=== PATIENT | female | born 1995 ===

== ENCOUNTER 2016-10-11 14:24 | Emergency (ER) | payer OTHER ==
[2016-10-11 14:55] VITALS: TEMP 98.3
[2016-10-11 16:04] LABS: BASO # 0.01 K/mm3 (0.0-2.0); BASO % 0.1 % (0.0-3.0); EOS # 0.2 (0.0-0.7); EOS % 1.5 % (1.5-5.0); GRAN # 8.23 (1.4-6.5); GRAN % 80.3 % (50.0-68.0); HEMOGLOBIN 13.5 g/dL (12.0-16.0); LYMPH # 1.4 (1.2-3.4); LYMPH % 13.6 % (22.0-35.0); MEAN CELL VOLUME 85.1 fl (80.0-105.0); MEAN CORPUSCULAR HEMOGLOBIN 29.5 pg (25.0-35.0); MEAN CORPUSCULAR HGB CONC 34.7 g/dl (31.0-37.0); MEAN PLATELET VOLUME 9.2 fl (7.0-11.0); MONO # 0.5 (0.1-0.6); MONO % 4.5 % (1.0-6.0); PLATELET COUNT 252 10^3/uL (120.0-450.0); RBC 4.57 10^6/uL (3.5-6.1); RED CELL DISTRIBUTION WIDTH 13.3 % (11.5-14.5); WHITE BLOOD COUNT 10.2 10^3/ul (4.5-11.0)
[2016-10-11 16:05] LABS: PH,URINE 6.5 (4.7-8.0); URINE BILIRUBIN NEGATIVE (NEGATIVE); URINE BLOOD LARGE (NEGATIVE); URINE GLUCOSE (UA) NEGATIVE (NEGATIVE); URINE LEUKOCYTE ESTERASE TRACE Leu/uL (NEGATIVE); URINE NITRATE NEGATIVE (NEGATIVE); URINE PROTEIN TRACE mg/dL (<30 mg/dL)
[2016-10-11 16:06] LABS: URINE APPEARANCE TURBID (CLEAR); URINE COLOR YELLOW (YELLOW)
[2016-10-11 16:15] LABS: URINE RBC TNTC /hpf (0-2); URINE WBC 0 - 2 /hpf (0-6)
[2016-10-11 16:18] LABS: ALB/GLOB RATIO 1.4 (1.1-1.8); ALBUMIN 3.8 g/dL (3.0-4.8); ALT/SGPT 16 U/L (7-56); AST/SGOT 20 U/L (15-39); BLOOD UREA NITROGEN 5 mg/dL (7-21); CALCIUM 9.1 mg/dL (8.4-10.5); GFR AFRICAN-AMERICAN > 60; GFR NON-AFRICAN AMERICAN > 60
--- NOTE | 2016-10-11 17:05 | ED PDOC ---
Arrival/HPI - General Chief Complaint: Female Genitourinary Time Seen by Provider: 10/11/16 16:55 - History of Present Illness Narrative History of Present Illness (Text): 10/11/16 16:55 Sharmin Greenwood is a 21 year old female who presents to the emergency department complaining of vaginal bleeding as per [facility] medical office technician, assisting with translation. Patient states that her last normal menstrual period was September 16. Patient presents today after passing a large clot in the bathroom and vaginal bleeding. Patient denies any weakness, dizziness, or any other complaints. Severity Level: Mild Activities at Onset: Light Modifying Factors (Text): none Context: Home Past Medical History - Provider Review Nursing Documentation Reviewed: Yes - Infectious Disease Hx of Infectious Diseases: None - Reproductive Menopause: No - Psychiatric Hx Substance Use: No Family/Social History - Physician Review Nursing Documentation Reviewed: Yes Family/Social History: No Known Family HX Smoking Status: Current Some Days Smoker Hx Alcohol Use: No Hx Substance Use: No Allergies/Home Meds Allergies/Adverse Reactions: Allergies No Known Allergies Allergy (Verified 10/11/16 14:54) Home Medications: Home Meds Medication Instructions Recorded Confirmed No Known Home Med 10/11/16 10/11/16 Physical Exam - Physical Exam Narrative Physical Exam (Text): - Review of Systems Constitutional: Normal. absent: Fatigue, Weight Change, Fevers Eyes: Normal ENT: Normal Respiratory: Normal absent: SOB, Cough, Sputum Cardiovascular: Normal absent: Chest pain, Palpitations, Syncope Gastrointestinal: Normal absent: Abdominal pain, Diarrhea, Nausea, Vomiting Genitourinary: Vaginal Bleeding. absent: Dysuria, Frequency, Hematuria Musculoskeletal: Normal. absent: Arthralgias, Back Pain, Neck Pain Skin: Normal Neurological: Normal absent: Focal Weakness Endocrine: Normal Hemo/Lymphatic: Normal Psychiatric: Normal - Physical exam Patient appears age appropriate, speaking full sentences without difficulty - Systems Exam Head: Present: Atraumatic, Normocephalic Pupils: Present: PERRL Extraocular Muscles: Present: EOMI Conjunctiva: Present: Normal Mouth: Present: Moist Mucous Membranes Neck: Present: Normal Range of Motion. No: MIDLINE TENDERNESS, Paraspinal Tenderness Respiratory/Chest: Present: Clear to Auscultation, Good Air Exchange. No: Respiratory Distress, Accessory Muscle Use, Tachypnic Cardiovascular: Present: Regular Rate and Rhythm, Normal S1, S2, Peripheral Pulses Present. No: Murmurs Abdomen: Present: Normal Bowel Sounds, No: Tenderness, Peritoneal Signs, Rebound, Guarding, Distention Genitourinary: [facility] medical office technician present during exam. Normal appearing external genitalia. Some pooling in the vaginal vault. Cervix not visualized. No tenderness to R. and L. adnexa. Back: Present: Normal Inspection. No: Midline Tenderness, Paraspinal Tenderness Upper Extremity: Present: Normal Inspection. No: Cyanosis, Edema Lower Extremity: Present: Normal Inspection. No: Edema Neurological: Present: GCS=15, Speech Normal, cranial nerves II through XII fully intact with no cerebellar abnormality, neuro-sensory fully intact. No focal neurological deficits. Skin: Present: Warm, Dry, Normal Color. No: Rashes Lymphatic: Present: OX3, NI, NC Psychiatric: Present: Alert, Oriented x 3, Normal Insight, Normal Concentration Vital Signs Reviewed: Yes Vital Signs Temp Pulse Resp BP Pulse Ox 10/11/16 21:03 65 20 107/63 98 10/11/16 18:05 66 20 105/58 L 100 10/11/16 14:43 98.3 F 75 20 112/73 98 Temperature: Afebrile Blood Pressure: Normal Pulse: Regular Respiratory Rate: Normal Appearance: Positive for: Well-Appearing, Non-Toxic, Comfortable Pain Distress: None Mental Status: Positive for: Alert and Oriented X 3 Medical Decision Making ED Course and Treatment: 10/11/16 16:55 Impression: 21 year old female complaining of vaginal bleeding today. Abd soft/nt, and pt is hemodynamically stable Plan: -- OB Transvaginal Ultrasound -- Urine Culture -- Reassess and disposition Progress Notes: 10/11/16 18:15 OB Transvaginal Ultrasound: Creator : DR. Montero, Odilia Carpio MD Findings: The uterus measures approximately 13.4 x 6.9 x 8.3 cm. Anteverted. Cervix length measures approximately 2.7 cm. The endometrium appears heterogeneous and thick approximately 2.7 cm in diameter. No evidence of intrauterine gestational sac. The right ovary measures 3.3 x 1.9 x 2.7 cm. Doppler flow was not demonstrated to the right ovary. The left ovary measures 2.9 x 3.1 x 1.8 cm. Blood flow was demonstrated to the left ovary. Impression: Heterogeneous thickened endometrium measuring up to 2.7 cm in diameter. No evidence of intrauterine gestational sac. Blood flow was not demonstrated to the right ovary, possibly due to technical factors. Correlate clinically. Addendum by radiologist closed cervix 10/11/16 20:[address] Combs, [employer] insulation machine operator, in detail she states she reviewed pt's US as well states to dc pt home states to admin 4 tabs 200mcg each of cytotec transvaginally and to dc pt home with outpatient clinic f/u, and to return to the ER in 2 days for repeat beta and US pt hemodynamically stable , in distress 10/11/16 22:37 Neftali CANTU translating and present in the room during cytotec administration pt informed to fu with [employer] specialist office/clinic or in the ER within 48hrs for repeat labs and US pt verbalized understanding and agreement with plan no longer having vaginal bleeding hemodynamically stable Pt states she understands to return to the ER right away for new or worsening symptoms or for inability to f/u with PMD or specialist as instructed. Patient states that she fully agrees with and understands discharge instructions. States that she agrees with the plan and disposition. Verbalized and repeated discharge instructions and plan. I have given the patient opportunity to ask any additional questions. - Lab Interpretations Lab Results: 10/11/16 15:51 10/11/16 15:51 Lab Results 10/11/16 17:24: Blood Type Confirm O POSITIVE 10/11/16 15:53: Blood Type O POSITIVE, Antibody Screen Negative, BBK History Checked No verified bt 10/11/16 15:51: Beta HCG, Quant 5160.30 H 10/11/16 15:51: Sodium 134, Potassium 3.7, Chloride 103, Carbon Dioxide 20 L, Anion Gap 15, BUN 5 L, Creatinine 0.4 L, Est GFR ( Amer) > 60, Est GFR ( Non-Af Amer) > 60, Random Glucose 79, Calcium 9.1, Total Bilirubin 0.3, AST 20, ALT 16, Alkaline Phosphatase 73, Total Protein 6.6, Albumin 3.8, Globulin 2.8, Albumin/Globulin Ratio 1.4 10/11/16 15:51: Urine Color Yellow, Urine Appearance Turbid, Urine pH 6.5, Ur Specific [place] 1.010, Urine Protein Trace H, Urine Glucose (UA) Negative, Urine Ketones Negative, Urine Blood Large H, Urine Nitrate Negative, Urine Bilirubin Negative, Urine Urobilinogen 1.0 H, Ur Leukocyte Esterase Trace H, Urine RBC Tntc, Urine WBC 0 - 2, Ur Epithelial Cells 1 - 3 10/11/16 15:51: WBC 10.2, RBC 4.57, Hgb 13.5, Hct 38.9, MCV 85.1, MCH 29.5, MCHC 34.7, RDW 13.3, Plt Count 252, MPV 9.2, Gran % 80.3 H, Lymph % (Auto) 13.6 L, [place] % (Auto) 4.5, Eos % (Auto) 1.5, Baso % (Auto) 0.1, Gran # 8.23 H, Lymph # 1.4, [place] # 0.5, Eos # 0.2, Baso # 0.01 I have reviewed the lab results: Yes - RAD Interpretation Radiology Orders: 10/11/16 15:12 OB TRANSVAGINAL [US] Stat - Medication Orders Current Medication Orders: Discontinued Medications Misoprostol (Cytotec) 800 mcg VAG STAT STA Stop: 10/11/16 20:12 Last Admin: 10/11/16 21:01 Dose: 800 mcg - Scribe Statement The provider has reviewed the documentation as recorded by the Sharon Chan Provider Scribe Attestation: All medical record entries made by the Scribe were at my direction and personally dictated by me. I have reviewed the chart and agree that the record accurately reflects my personal performance of the history, physical exam, medical decision making, and the department course for this patient. I have also personally directed, reviewed, and agree with the discharge instructions and disposition. Disposition/Present on Arrival - Present on Arrival Any Indicators Present on Arrival: No History of DVT/PE: No History of Uncontrolled Diabetes: No Urinary Catheter: No History of Decub. Ulcer: No History Surgical Site Infection Following: None - Disposition Have Diagnosis and Disposition been Completed?: Yes Diagnosis: Miscarriage Disposition: HOME/ ROUTINE Disposition Time: 22:54 Patient Plan: Discharge Condition: GOOD Discharge Instructions (ExitCare): Spontaneous Miscarriage (ED) Additional Instructions: PLEASE FOLLOW UP IN THE ER OR IN SPECIALIST OFFICE IN 48HOURS FOR REPEAT ULTRASOUND AND LABS PLEASE RETURN TO THE EMERGENCY DEPARTMENT FOR NEW OR WORSENING SYMPTOMS. RETURN RIGHT AWAY IF YOU CANNOT FOLLOW UP WITH YOUR PRIMARY CARE DOCTOR, CLINIC, OR SPECIALIST IN 1-2 DAYS. Referrals: PCP,NO [Primary Care Provider] - [facility] - Follow up with primary Magali Combs MD [Staff Provider] - Follow up with primary Forms: [facility] (Kazakh), WORK NOTE
--- NOTE | 2016-10-11 17:08 | US ---
Indication: Miscarriage Comparison: None available Technique: Transvaginal pelvic ultrasound. Findings: The uterus measures approximately 13.4 x 6.9 x 8.3 cm. Anteverted. Cervix length measures approximately 2.7 cm. The endometrium appears heterogeneous and thick approximately 2.7 cm in diameter. No evidence of intrauterine gestational sac. The right ovary measures 3.3 x 1.9 x 2.7 cm. Doppler flow was not demonstrated to the right ovary. The left ovary measures 2.9 x 3.1 x 1.8 cm. Blood flow was demonstrated to the left ovary. Impression: Heterogeneous thickened endometrium measuring up to 2.7 cm in diameter. No evidence of intrauterine gestational sac. Blood flow was not demonstrated to the right ovary, possibly due to technical factors. Correlate clinically.
[2016-10-11 21:04] VITALS: O2SAT 98
[2016-10-12 01:02] VITALS: BP 111/63; PULSE 68; RESP 19
== END 2016-10-11 22:45 | disposition home or self-care (01) ==
LOC: ED 14:24
DX: O03.9 Complete or unspecified spontaneous abortion without complication (principal)

== ENCOUNTER 2016-10-15 11:56 | Emergency (ER) | payer OTHER ==
[2016-10-15 12:23] VITALS: TEMP 99.5
--- NOTE | 2016-10-15 13:07 | ED PDOC ---
Arrival/HPI - General Chief Complaint: Medical Clearance Time Seen by Provider: 10/15/16 12:17 Historian: Patient - History of Present Illness Narrative History of Present Illness (Text): 10/15/16 13:05 A 21 year old female, s/p miscarriage four days ago, presents to the emergency department for a check up. Nurse Addie served as statement distribution clerk. Patient reported to the emergency department four days ago, and was told to return if couldn't get an appointment with OBGYN within a few days. Notes vaginal bleeding for the past four days, currently resolved. Patient is unsure, but believes she was 3-4 months . Reports she has an appointment with OBGYN in ten days. Denies any fever, nausea, vomiting or any other complaints at this time. Symptom Onset: Sudden Symptom Course: Unchanged Activities at Onset: Rest Context: Home Associated Symptoms (Text): none Past Medical History - Provider Review Nursing Documentation Reviewed: Yes - Travel History If Yes, travel location?: Arrived from [place] 1 week ago - Infectious Disease Hx of Infectious Diseases: None - Psychiatric Hx Substance Use: No Family/Social History - Physician Review Nursing Documentation Reviewed: Yes Family/Social History: No Known Family HX Smoking Status: Current Some Days Smoker Hx Alcohol Use: No Hx Substance Use: No Allergies/Home Meds Allergies/Adverse Reactions: Allergies No Known Allergies Allergy (Verified 10/15/16 12:23) Home Medications: Home Meds Medication Instructions Recorded Confirmed No Known Home Med 10/11/16 10/15/16 Review of Systems - Physician Review All systems were reviewed & negative as marked: Yes - Review of Systems Constitutional: absent: Fevers Gastrointestinal: absent: Nausea, Vomiting Genitourinary Female: absent: Dysuria, Vaginal Bleeding (currently resolved) Physical Exam Vital Signs Reviewed: Yes Vital Signs Temp Pulse Resp BP Pulse Ox 10/15/16 15:44 57 L 18 113/64 99 10/15/16 15:04 64 18 133/75 100 10/15/16 14:42 65 17 135/80 100 10/15/16 13:05 70 17 132/78 100 10/15/16 12:23 99.5 F 75 16 133/74 99 Temperature: Afebrile Blood Pressure: Normal Pulse: Regular Respiratory Rate: Normal Appearance: Positive for: Well-Appearing, Non-Toxic, Comfortable Pain Distress: None Mental Status: Positive for: Alert and Oriented X 3 - Systems Exam Head: Present: Atraumatic, Normocephalic Pupils: Present: PERRL Extroacular Muscles: Present: EOMI Conjunctiva: Present: Normal Mouth: Present: Moist Mucous Membranes Neck: Present: Normal Range of Motion Respiratory/Chest: Present: Clear to Auscultation, Good Air Exchange. No: Respiratory Distress, Accessory Muscle Use Cardiovascular: Present: Regular Rate and Rhythm, Normal S1, S2. No: Murmurs Abdomen: Present: Normal Bowel Sounds. No: Tenderness, Distention, Peritoneal Signs Back: Present: Normal Inspection Upper Extremity: Present: Normal Inspection. No: Cyanosis, Edema Lower Extremity: Present: Normal Inspection. No: Edema Neurological: Present: GCS=15, CN II-XII Intact, Speech Normal Skin: Present: Warm, Dry, Normal Color. No: Rashes Psychiatric: Present: Alert, Oriented x 3, Normal Insight, Normal Concentration Medical Decision Making ED Course and Treatment: 10/15/16 15:07 Transvaginal US Creator : Nic Garza MD FINDINGS: UTERUS: Measures 10.6 x 6.9 x 9.1 cm. Normal in size and appearance. No fibroid or other mass lesion seen. ENDOMETRIUM: Measures 34 mm in diameter. Thick heterogeneous endometrium consistent with hemorrhage and recent miscarriage. No evidence of gestational sac CERVIX: No cervical abnormality identified. RIGHT OVARY: Measures 2.6 x 1.8 x 2.5 cm. No solid mass. Normal flow. LEFT OVARY: Measures 2.8 x 1.5 x 2.9 cm. No solid mass. Normal flow. FREE FLUID: No significant free fluid noted. IMPRESSION: Blood flow is now demonstrated in both ovaries. On the previous study the right ovary blood flow was not demonstrated. No change in the appearance of blood products within the endometrial canal. 10/15/16 15:23 Case discussed with OBGYN Dr. Goyal. - Lab Interpretations Lab Results: Lab Results 10/15/16 13:21: Beta HCG, Quant 111.08 H I have reviewed the lab results: Yes - RAD Interpretation Radiology Orders: 10/15/16 12:52 TRANSVAGINAL [US] Stat - Scribe Statement The provider has reviewed the documentation as recorded by the Sharon Ambrose Provider Scribe Attestation: All medical record entries made by the Scribe were at my direction and personally dictated by me. I have reviewed the chart and agree that the record accurately reflects my personal performance of the history, physical exam, medical decision making, and the department course for this patient. I have also personally directed, reviewed, and agree with the discharge instructions and disposition. Disposition/Present on Arrival - Present on Arrival Any Indicators Present on Arrival: No History of DVT/PE: No History of Uncontrolled Diabetes: No Urinary Catheter: No History of Decub. Ulcer: No History Surgical Site Infection Following: None - Disposition Have Diagnosis and Disposition been Completed?: Yes Diagnosis: Spontaneous Disposition: HOME/ ROUTINE Disposition Time: 15:23 Condition: GOOD Discharge Instructions (ExitCare): Spontaneous Miscarriage (ED) Print Language: ICELANDIC Additional Instructions: Please follow up with your OBGYN doctor. Take your test results to your appointment. Return to the ER for any new or worsening symptoms or for any other concerns. Referrals: PCP,NO [Primary Care Provider] - Follow up with primary Forms: [facility] (Cymro)
[2016-10-15 15:04] VITALS: RESP 18
--- NOTE | 2016-10-15 15:04 | US ---
HISTORY: spont follow up COMPARISON: Ultrasound 10/11/2016 TECHNIQUE: Transvaginal FINDINGS: UTERUS: Measures 10.6 x 6.9 x 9.1 cm. Normal in size and appearance. No fibroid or other mass lesion seen. ENDOMETRIUM: Measures 34 mm in diameter. Thick heterogeneous endometrium consistent with hemorrhage and recent miscarriage. No evidence of gestational sac CERVIX: No cervical abnormality identified. RIGHT OVARY: Measures 2.6 x 1.8 x 2.5 cm. No solid mass. Normal flow. LEFT OVARY: Measures 2.8 x 1.5 x 2.9 cm. No solid mass. Normal flow. FREE FLUID: No significant free fluid noted. OTHER FINDINGS: None. IMPRESSION: Blood flow is now demonstrated in both ovaries. On the previous study the right ovary blood flow was not demonstrated. No change in the appearance of blood products within the endometrial canal.
[2016-10-15 15:45] VITALS: BP 113/64; PULSE 57; O2SAT 99
== END 2016-10-15 15:45 | disposition home or self-care (01) ==
LOC: ED 11:56
DX: O03.9 Complete or unspecified spontaneous abortion without complication (principal)

== ENCOUNTER 2017-05-23 16:45 | Emergency (ER) | payer OTHER ==
[2017-05-23] MEDS ORDERED: Sodium Chloride 0.9% 1,000 ML IV STA (17:15)
--- NOTE | 2017-05-23 17:15 | ED PDOC ---
Arrival/HPI - General Chief Complaint: Female Genitourinary Time Seen by Provider: 05/23/17 17:05 Historian: Patient - History of Present Illness Narrative History of Present Illness (Text): 05/23/17 17:12 21yo female who present with complaint of suprapubic abdominal pain and vaginal bleeding since this afternoon. Patient report LMP on March 19 this year. States she didn't do a home test, but started bleeding today. She report episode of having blood clot this evening. she reports similar symptom in September when she was told she had a miscarriage. She denies fever, chills, nausea, vomiting, diarrhea, constipation, dysuria, back pain, any other complaint. Past Medical History - Provider Review Nursing Documentation Reviewed: Yes - Infectious Disease Hx of Infectious Diseases: None - Cardiac Hx Cardiac Disorders: No - Pulmonary Hx Respiratory Disorders: No - Neurological Hx Neurological Disorder: No - HEENT Hx HEENT Disorder: No - Renal Hx Renal Disorder: No - Endocrine/Metabolic Hx Endocrine Disorders: No - Hematological/Oncological Hx Blood Disorders: No - Integumentary Hx Dermatological Disorder: No - Musculoskeletal/Rheumatological Hx Musculoskeletal Disorders: No - Gastrointestinal Hx Gastrointestinal Disorders: No - Genitourinary/Gynecological Hx Genitourinary Disorders: No - Psychiatric Hx Psychophysiologic Disorder: No Hx Substance Use: No Family/Social History - Physician Review Nursing Documentation Reviewed: Yes Family/Social History: Unknown Family HX Smoking Status: Current Some Days Smoker Hx Alcohol Use: No Hx Substance Use: No Allergies/Home Meds Allergies/Adverse Reactions: Allergies No Known Allergies Allergy (Verified 05/23/17 16:59) Home Medications: Home Meds Medication Instructions Recorded Confirmed No Known Home Med 10/11/16 05/23/17 Review of Systems - Physician Review All systems were reviewed & negative as marked: Yes - Review of Systems Constitutional: Normal Eyes: Normal ENT: Normal Respiratory: Normal Cardiovascular: Normal Gastrointestinal: Abdominal Pain. absent: Constipation, Diarrhea, Nausea, Vomiting, Hematochezia, Hematemesis Genitourinary Female: Vaginal Bleeding. absent: Dysuria, Frequency Musculoskeletal: Normal Skin: Normal Neurological: Normal Endocrine: Normal Hemo/Lymphatic: Normal Psychiatric: Normal Physical Exam Vital Signs Reviewed: Yes Vital Signs Temp Pulse Resp BP Pulse Ox 05/23/17 21:14 98.4 F 69 18 126/74 99 05/23/17 19:31 66 18 120/57 L 100 05/23/17 17:00 99.0 F 77 18 111/71 99 Temperature: Afebrile Blood Pressure: Normal Pulse: Regular Respiratory Rate: Normal Appearance: Positive for: Well-Appearing, Non-Toxic, Comfortable Pain Distress: None Mental Status: Positive for: Alert and Oriented X 3 - Systems Exam Head: Present: Atraumatic, Normocephalic Pupils: Present: PERRL Extroacular Muscles: Present: EOMI Conjunctiva: Present: Normal Mouth: Present: Moist Mucous Membranes Neck: Present: Normal Range of Motion Respiratory/Chest: Present: Clear to Auscultation, Good Air Exchange. No: Respiratory Distress, Accessory Muscle Use Cardiovascular: Present: Regular Rate and Rhythm, Normal S1, S2. No: Murmurs Abdomen: Present: Tenderness (suprapubic tenderness), Normal Bowel Sounds, Other (soft). No: Distention, Peritoneal Signs, Rebound, Guarding, McBurney's Point Tender, Rovsing's Sign Present Genitourinary/Pelvic Exam: Present: Vaginal Bleeding (Blood pooling noted in vault), Cervical os Closed (Unable to visualize secondary to the blood in vault) Back: Present: Normal Inspection Upper Extremity: Present: Normal Inspection. No: Cyanosis, Edema Lower Extremity: Present: Normal Inspection. No: Edema Neurological: Present: GCS=15, CN II-XII Intact, Speech Normal Skin: Present: Warm, Dry, Normal Color. No: Rashes Psychiatric: Present: Alert, Oriented x 3, Normal Insight, Normal Concentration Medical Decision Making ED Course and Treatment: 05/24/17 01:16 PT in ED for sated history. she was not in any distress in ED. Hemodynamically sble. Hy[place] [address].00 was noted Transvaginal Us IMPRESSION: 1. There is thickening of the endometrium measuring 3.0 cm. There is abnormal echogenicity within the endometrial canal, consistent with complex fluid or hemorrhage. Similar findings are visualized on the prior study. 2. No intrauterine gestational sac is identified. This can be consistent with a failed , although ectopic cannot be excluded. Correlation with serial hCG levels and follow-up ultrasonography is recommended. Sarahy CANTU translated. Result was DW the pt. she was given a copy of her beta quant and advised to follow up with OB for a repeat beta within a week. She was advised to return to ED if she can't see OB. - Lab Interpretations Lab Results: 05/23/17 17:45 05/23/17 17:45 Lab Results 05/23/17 19:05: PT 11.4, INR 0.99, APTT 29.4 05/23/17 19:05: Blood Type O POSITIVE, Antibody Screen Negative, BBK History Checked Patient has bt 05/23/17 17:45: Beta HCG, Quant 43863.00 H 05/23/17 17:45: Sodium 136, Potassium 3.8, Chloride 104, Carbon Dioxide 20 L, Anion Gap 16, BUN 5 L, Creatinine 0.5 L, Est GFR ( Amer) > 60, Est GFR ( Non-Af Amer) > 60, Random Glucose 96, Calcium 9.3, Total Bilirubin 0.1 L, AST 20 , ALT 18, Alkaline Phosphatase 74, Total Protein 7.2, Albumin 3.8, Globulin 3.4 , Albumin/Globulin Ratio 1.1 05/23/17 17:45: Urine Color Red, Urine Appearance Bloody, Urine pH 6.5, Ur Specific [place] >= 1.030, Urine Protein >=300 H, Urine Glucose (UA) 100 H, Urine Ketones Trace H, Urine Blood Large H, Urine Nitrate Positive H, Urine Bilirubin Small H, Urine Urobilinogen 1.0 H, Ur Leukocyte Esterase Negative, Urine RBC Tntc, Urine WBC 1 - 3, Ur Epithelial Cells 1 - 3, Urine Bacteria Few, Urine HCG, Qual Positive 05/23/17 17:45: WBC 14.1 H D, RBC 4.30, Hgb 12.6, Hct 36.4, MCV 84.7, MCH 29.3, MCHC 34.6, RDW 14.2, Plt Count 297, MPV 9.3, Gran % 85.3 H, Lymph % (Auto) 10.3 L, [place] % (Auto) 3.9, Eos % (Auto) 0.4 L, Baso % (Auto) 0.1, Gran # 12.02 H, Lymph # (Auto) 1.5, [place] # (Auto) 0.6, Eos # (Auto) 0.1, Baso # (Auto) 0.01 - RAD Interpretation Radiology Orders: 05/23/17 17:16 PELVIS ULTRASOUND [US] Stat - Medication Orders Current Medication Orders: Discontinued Medications Sodium Chloride (Sodium Chloride 0.9%) 1,000 mls @ 999 mls/hr IV .Q1H1M STA Stop: 05/23/17 18:15 Last Admin: 05/23/17 17:36 Dose: 999 mls/hr eMAR Start Stop Document 05/23/17 17:36 OCS (Rec: 05/23/17 17:36 OCS [id number]) Intravenous Solution Start Date 05/23/17 Start Time 17:36 End Date 05/23/17 End time 18:37 Total Infusion Time 61 Disposition/Present on Arrival - Present on Arrival Any Indicators Present on Arrival: No History of DVT/PE: No History of Uncontrolled Diabetes: No Urinary Catheter: No History of Decub. Ulcer: No History Surgical Site Infection Following: None - Disposition Have Diagnosis and Disposition been Completed?: Yes Diagnosis: Missed Disposition: HOME/ ROUTINE Disposition Time: 21:15 Isolation: Special Contact Patient Plan: Discharge Condition: STABLE Discharge Instructions (ExitCare): Miscarriage Print Language: LUXEMBOURGER Additional Instructions: Follow up with your OB for a repeat beta Return to ED for any new or worsening symptoms Referrals: PCP,NO [Primary Care Provider] - Follow up with primary Magali Combs MD [Staff Provider] - Follow up with primary [facility] [Outside] - Follow up with primary Forms: [employer] (Czech)
[2017-05-23 17:25] VITALS: RESP 18; BMI 38.5
[2017-05-23 17:57] LABS: BASO # 0.01 K/mm3 (0.0-2.0); BASO % 0.1 % (0.0-3.0); EOS # 0.1 (0.0-0.7); EOS % 0.4 % (1.5-5.0); GRAN # 12.02 (1.4-6.5); GRAN % 85.3 % (50.0-68.0); HEMOGLOBIN 12.6 g/dL (12.0-16.0); LYMPH # 1.5 (1.2-3.4); LYMPH % 10.3 % (22.0-35.0); MEAN CELL VOLUME 84.7 fl (80.0-105.0); MEAN CORPUSCULAR HEMOGLOBIN 29.3 pg (25.0-35.0); MEAN CORPUSCULAR HGB CONC 34.6 g/dl (31.0-37.0); MEAN PLATELET VOLUME 9.3 fl (7.0-11.0); MONO # 0.6 (0.1-0.6); MONO % 3.9 % (1.0-6.0); RBC 4.3 10^6/uL (3.5-6.1); RED CELL DISTRIBUTION WIDTH 14.2 % (11.5-14.5); WHITE BLOOD COUNT 14.1 10^3/ul (4.5-11.0)
[2017-05-23 18:04] LABS: PH,URINE 6.5 (4.7-8.0); URINE BILIRUBIN SMALL (NEGATIVE); URINE BLOOD LARGE (NEGATIVE); URINE GLUCOSE (UA) 100 mg/dL (NEGATIVE); URINE LEUKOCYTE ESTERASE NEGATIVE Leu/uL (NEGATIVE); URINE PROTEIN >=300 mg/dL (<30 mg/dL)
[2017-05-23 18:05] LABS: HCG,QUALITATIVE URINE POSITIVE (NEGATIVE); URINE APPEARANCE BLOODY (CLEAR); URINE COLOR RED (YELLOW)
[2017-05-23 18:12] LABS: ALB/GLOB RATIO 1.1 (1.1-1.8); ALBUMIN 3.8 g/dL (3.0-4.8); ALT/SGPT 18 U/L (7-56); AST/SGOT 20 U/L (14-36); BLOOD UREA NITROGEN 5 mg/dL (7-21); CALCIUM 9.3 mg/dL (8.4-10.5); GFR AFRICAN-AMERICAN > 60; GFR NON-AFRICAN AMERICAN > 60
[2017-05-23 18:21] LABS: URINE BACTERIA FEW (NEG); URINE RBC TNTC /hpf (0-2)
[2017-05-23 19:34] LABS: INR 0.99 (0.93-1.08); PARTIAL THROMBOPLASTIN TIME 29.4 Seconds (25.1-36.5); PROTHROMBIN TIME 11.4 SECONDS (9.4-12.5)
--- NOTE | 2017-05-23 20:51 | US ---
EXAM: US First Trimester, Transabdominal EXAM DATE/TIME: 05/23/2017 5:16 PM CLINICAL HISTORY: The patient age is 21 years old and is female; Pain; Pelvic pain; Additional info: Vaginal bleedintg Facility exam id and description: Us pelvisus pelvis ultrasound TECHNIQUE: Real-time transabdominal obstetrical ultrasound of the maternal pelvis and a first trimester with image documentation. COMPARISON: US - OB TRANSVAGINAL 2016-10-11 16:01 FINDINGS: Gestation: No intrauterine gestational sac is identified. This can be consistent with a failed , although ectopic cannot be excluded. Uterus/cervix: There is thickening of the endometrium measuring 3.0 cm. There is abnormal echogenicity within the endometrial canal, consistent with complex fluid or hemorrhage. The uterus measures 14.3 x 8.7 x 8.8 cm. No myometrial mass. Ovaries: The right ovary measures 3.4 x 2.1 x 2.8 cm. The left ovary measures 3.7 x 2.0 x 2.6 cm. There is physiologic blood flow within the right ovary, without evidence of torsion. There is physiologic blood flow within the left ovary, without evidence of torsion. No mass. Free fluid: There is no free fluid within the cul-de-sac. Other findings: The patient was unable to do transvaginal imaging due to pain. IMPRESSION: 1. There is thickening of the endometrium measuring 3.0 cm. There is abnormal echogenicity within the endometrial canal, consistent with complex fluid or hemorrhage. Similar findings are visualized on the prior study. 2. No intrauterine gestational sac is identified. This can be consistent with a failed , although ectopic cannot be excluded. Correlation with serial hCG levels and follow-up ultrasonography is recommended.
[2017-05-23 21:15] VITALS: BP 126/74; PULSE 69; TEMP 98.4; O2SAT 99
== END 2017-05-23 21:24 | disposition home or self-care (01) ==
LOC: ED 16:45
DX: O02.1 Missed abortion (principal); Z3A.00 Weeks of gestation of pregnancy not specified
CPT/HCPCS: 76856; 80053; 81001; 84702; 84703; 85025; 85610; 85730; 86850; 86900; 87086; 96360; 99284; J7040